=== PATIENT | male | born 1995 | race Caucasian/White ===

== ENCOUNTER 2020-02-04 16:30 | Emergency (ER) | payer BC ==
[~2020-02-04] VITALS: Ht 175.3 cm; Wt 72.6 kg
[~2020-02-04 16:30] MED LIST: CODACE30 PO; RXCODACET PO; RXTRAM50 PO
== END 2020-02-04 18:50 | disposition home or self-care (01) ==
LOC: ER 16:30
DX: R06.00 Dyspnea, unspecified (principal); F12.90 Cannabis use, unspecified, uncomplicated
CPT/HCPCS: 71045; 99283-25

== ENCOUNTER → 2024-04-04 | Outpatient (CLI) | payer OTHER | LOC: LAB 16:28 → LAB SHORT 16:28 | DX: K12.2 Cellulitis and abscess of mouth (principal) | CPT/HCPCS: 87081 ==